=== PATIENT | male | born 1950 | race Caucasian/White ===

== ENCOUNTER 2018-01-23 06:49 | Emergency (ER) | payer MEDICARE, OTHER ==
[2018-01-23] MEDS ORDERED: NS 0.9% 1000 ML* 1,000 ML IV ONE (07:37)
[2018-01-23 08:11] LABS: Hematocrit 44 % (42-52); Hemoglobin 15.1 g/dl (14.0-18.0); Mean Corpuscular HGB Conc 34 g/dl (31-36); Mean Corpuscular Hemoglobin 32 pg (27-31); Mean Corpuscular Volume 95 fL (80-94); Mean Platelet Volume 11.9 um3 (7.4-10.4); Platelet Count 185 10^3/ul (150-450); Red Blood Count 4.66 10^6/ul (4.0-5.4); Red Cell Distribution Width 13 % (10.5-15); White Blood Count 25.6 10^3/ul (3.5-10.8)
[2018-01-23 08:34] LABS: EGFR Non-African American 70.2 (>60); INR 1.09 (0.77-1.02)
[2018-01-23 09:02] LABS: ABS Basophils 0.1 10^3/ul (0-0.2); ABS Eosinophils 0.1 10^3/ul (0-0.6); ABS Lymphocytes 2.2 10^3/ul (1.0-4.8); ABS Neutrophils 21.2 10^3/ul (1.5-7.7); ABS Nucleated RBC 0 10^3/ul; Eosinophil % 0.2 % (0-6); Lymphocyte % 8.7 % (25-47); Nucleated Red Blood Cells % 0
--- OUTSIDE RECORDS SUMMARY | 2018-01-23 09:05 | XMS REPORT ---
:1950 External Reference #:[id number] Author Organization [facility] Address [address] [place] [address] Phone [phone] Care Team Providers Name Role Phone Rakesh Kline M.D. Primary Care Physician Unavailable Payers Type Date Identification Numbers Payment Provider Subscriber Commercial Policy Number: [id number] [employer] Ppo/Pos/Epo/Nap [employer] Number: [id number] [id number] PayID: [id number] [place] [address] Problems Date Description Provider Status Onset: 11/13/2014 Type 2 diabetes mellitus Александр Pena M.D. 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 Active rtnop w/o macular edema Onset: 12/21/2015 Presence of intraocular lens Александр Pena M.D. 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 Active without macular edema, bi Onset: Coronary atherosclerosis Active Onset: Non-rheumatic mitral regurgitation Active Family History Date Family Member(s) Problem(s) Comments Father No Current Problems Mother Cataract First Sister Diabetes Social History Type Date Description Comments Marital Status Legal Status: Occupation curator natural history [employer] ETOH Use Rarely consumes alcohol Smoking Patient is a former smoker in teenage years Recreational Drug Use Denies Drug Use Daily Caffeine Does Not Consume Caffeine Allergies, Adverse Reactions, Alerts Date Description Reaction Status Severity Comments 11/13/2014 Hannah banegas active Medications Medication Date Status Form Strength Qnty SIG Indications Ordering Provider Lantus Solostar Active Solution 100Unit/M Shell, /0000 Pen-Inject L Donta Demarco Nexium Active Capsules DR 20mg Suleman, / Donta Demarco Janumet Active Tablets 50-1000mg Suleman, / Donta Demarco Glipizide XL Active Tablets ER 10mg Suleman, /0000 24HR Donta Demarco Atorvastatin Active Tablets 20mg Unknown Calcium Niacin Active Tablets 500mg Unknown /0000 Accu-Chek Josselin Active Strips Shannan, Plus / Mateo Capellan MD Atenolol Active Tablets 100mg Suleman, / Donta Demarco Onetouch Verio Active Strips Suleman, Donta Demarco Clopidogrel Active Tablets 75mg Breiman, Bisulfate Александр Demarco Onetouch Delica Active Misc 30G Suleman, Lancets Fine 30G / Donta Demarco Hydrochlorothiazide Active Tablets 25mg Shallish, / Nagiyuly Demarco Lisinopril Active Tablets 40mg Suleman, / Donta Demarco Centrum Silver Active Tablets Unknown /0000 Aspirin Active Tablets 325mg Unknown /0000 Potassium Chloride Active Tablets ER 10Meq Unknown Asuncion ER Atorvastatin Active Tablets 20mg Take One Unknown Calcium /0000 Tablet By Mouth Every Day Systane Balance 11/29 Hx Solution 0.6% 1 drop Александр Altamirano Restorative Formula both Arleo, - eyes M.D. 12/22 times a day as needed Ilevro 11/21 Hx Suspension 0.3% 1 drop Александр Altamirano /2014 left eye Arleo, - every M.D. Vigamox 11/21 Hx Solution 0.5% 3ml 1 drop Александр Altamirano /2014 left eye Arleo, - three M.D. 12/20 day , start the day before surgery Prednisolone 11/21 Hx Suspension 1% 1 drop Александр Altamirano left eye Becky, - every M.D. Amoxicillin/Clavula Hx Tablets 875-125mg Unknown leyda Potassium /0000 - 12/19 Results Description No Information Procedures Date CPT Code Description Status 12/22/2016 99040 Scanning Computerized Opthalmic Diagnostic Posterior Completed Seg Retina 12/22/2016 35861 Determination Of Refractive State Completed 12/22/2016 76835 Est Patient Comprehensive Exam Completed 12/21/2015 64892 Scanning Computerized Opthalmic Diagnostic Posterior Completed Seg Retina 12/21/2015 35478 Determination Of Refractive State Completed 12/21/2015 87888 Est Patient Comprehensive Exam Completed 12/06/2014 95126 Extracapsular Cataract Extraction W/Intraocular Lens Completed 11/29/2014 26986 Extracapsular Cataract Extraction W/Intraocular Lens Completed 11/21/2014 29174 Ophthalmic Biometry Completed 11/21/2014 37516 Ophthalmic Biometry Completed 11/21/2014 86273 Scanning Computerized Opthalmic Diagnostic Posterior Completed Seg Retina 11/13/2014 19208 Scanning Computerized Opthalmic Diagnostic Posterior Completed Seg Retina 11/13/2014 39694 New Patient Comprehensive Exam Completed Encounters Type Date Location Provider CPT E/M Dx Office Visit 11/21/2014 8:30a Александр Pena MD, Александр Pena, [id number] 250.50 pc M.Pati 366.14 362.01 Plan of Care 12/24/2017 - Александр Pena M.D.E11.3293 Type 2 diab with mild nonp rtnop without macular edema, biComments:Smoking can increase the risk of developing or worsening any eye related disease, as well as affect your overall health. If you are a smoker, we strongly recommend that you quit.If you are not a smoker , we strongly recommend that you do not start. I can detect diabetic changes in your eyes. Proper control of your diabetes is important for the health of your eyes. It is important that you keep all of your follow up appointments. Dr. Pena has sent a report to your primary care doctor, letting them know the current status of your retina.Follow up:1 Year Follow Up Diagnostic Refraction OCT MAC You can expect to have your eyes dilated at your next visit. If Dr. Pena orders any additional testing, it may require extra time. We recommend that youbring sunglasses, as dilation drops often make you light sensitive until they wear off. We always recommend you bring someone to drive you home if you are uncomfortable driving with your eyes dilated. If you have any questions before your next visit, feel free to call our office at .Z96.1 Presence of intraocular lensComments:The artificial lens implants in both eyes appear to be stable at this time.
[2018-01-23] MEDS ORDERED: Piperacillin/Tazobac ADVAN(*) 3.375 GM in NS 0.9% 100 ML* 100 ML IVPB ONE (09:43)
[2018-01-23] MEDS ORDERED: Iodixanol* (CONTRAST) 320 MG/ML 100 ML SDV IV ONE (09:53)
--- NOTE | 2018-01-23 10:12 | RAD ---
CLINICAL HISTORY: Diverticulitis, GI bleed COMPARISON: March 25, 2016 TECHNIQUE: Multiple contiguous axial CT scans were obtained of the abdomen and pelvis after the administration of intravenous contrast. Coronal and sagittal multiplanar reformations are submitted for review. Oral contrast was administered. Delayed images were obtained through the abdomen. FINDINGS: LUNG BASES: The lung bases are clear. LIVER: There is a low-attenuation lesion of the left lobe of liver in segment 4 posteriorly measuring 1.7 cm in size. This is not clearly seen on the previous examination. BILE DUCTS: There is no intrahepatic or extrahepatic biliary dilatation. GALLBLADDER: The gallbladder is normal, without pericholecystic inflammatory change. PANCREAS: The pancreas is normal, without mass or ductal dilatation. SPLEEN: Normal in size and appearance. UPPER GI TRACT: Evaluation of the gastrointestinal tract is limited by incomplete gastric distention. The upper GI tract is unremarkable. SMALL BOWEL AND MESENTERY: The small bowel is normal in contour, course, and caliber. There is no obstruction or dilatation. COLON: There is mucosal thickening of the descending colon. ADRENALS: Normal bilaterally. KIDNEYS: Again noted is an exophytic lesion of the midpole of the left kidney. This is stable in size and appearance when compared to the previous examination. Renal cysts are noted BLADDER: The bladder is smooth in contour. PELVIC ORGANS: The prostate gland is normal. The seminal vesicles are symmetric. AORTA: The aorta is normal. The celiac trunk, superior mesenteric artery, and inferior mesenteric arteries appear patent. IVC: There is a retroaortic left renal vein. LYMPH NODES: There is no lymphadenopathy by size criteria. ABDOMINAL WALL: There is no evidence for abdominal wall hernia. BONES AND SOFT TISSUES: There are mild diffuse degenerative changes. OTHER: None IMPRESSION: 1. THERE IS MUCOSAL THICKENING OF THE DESCENDING COLON, SUGGESTIVE OF COLITIS. THIS IS LIKELY INFECTIOUS OR INFLAMMATORY. ISCHEMIC COLITIS IS ALSO WITHIN THE DIFFERENTIAL, THOUGH THIS IS CONSIDERED LESS LIKELY THIS DOES NOT CORRESPOND DIRECTLY TO A VASCULAR TERRITORY AND THE SPLANCHNIC VESSELS APPEAR WIDELY PATENT. 2. THERE IS A LOW-ATTENUATION LESION OF THE LIVER THAT IS INCOMPLETELY CHARACTERIZED ON THE CURRENT EXAMINATION IS NOT WELL SEEN ON PREVIOUS EXAMINATIONS. RECOMMEND CONSIDERATION OF FURTHER EVALUATION WITH MULTIPHASE CONTRAST ENHANCED LIVER PROTOCOL CT OR CONTRAST-ENHANCED MRI OF THE ABDOMEN AND THE NONACUTE SETTING. 3. AGAIN NOTED IS A SOLID EXOPHYTIC LESION OF THE LEFT KIDNEY
[2018-01-23 10:54] VITALS: BP 143/88
--- NOTE | 2018-01-23 11:45 | ED ---
Pio Graham Stephanie, scribed for Sukhwinder Boyd on 01/23/18 at 0742 . GI/ HPI - HPI Summary HPI Summary: The pt is a 67 y/o M presenting to the ED with c/o rectal bleeding that began on 01/22/18. Symptoms include constipation and abd pain since 01/21/18.The pt states he passed gas 4 times yesterday and saw fresh blood from the rectum. He denies fever and vomiting. - History of Current Complaint Chief Complaint: EDGIBleed Time Seen by Provider: 01/23/18 07:10 Stated Complaint: RECTAL BLEEDING Hx Obtained From: Patient Onset/Duration: Started Days Ago - 1, Still Present Timing: Intermittent Current Severity: Moderate Pain Intensity: 6 Location of Pain: Diffuse Associated Signs and Symptoms: Positive: Constipation, Abdominal Pain, Other: - blood per rectum. Negative: Vomiting, Fever Aggravating Factor(s): Nothing Alleviating Factor(s): Nothing - Allergy/Home Medications Allergies/Adverse Reactions: Allergies Allergy/AdvReac Type Severity Reaction Status Date / Time zolpidem [From Ambien] Allergy Hallucinati Verified 01/23/18 07:08 ons Home Medications: Home Medications Atenolol TAB* [Tenormin TAB* 50 MG] 100 mg PO DAILY 01/23/18 [History Confirmed 01/23/18] Esomeprazole(NF) [NEXium(NF)] 20 mg PO DAILY 01/23/18 [History Confirmed ] Insulin GLARGINE(*) [Lantus(*)] 20 units SUBCUT QPM 01/23/18 [History Confirmed 01/23/18] Insulin GLARGINE(*) [Lantus(*)] 30 units SUBCUT QAM 01/23/18 [History Confirmed 01/23/18] Multivitamins/Minerals TAB* [Theragran/minerals TAB*] 1 tab PO DAILY 01/23/18 [ History Confirmed 01/23/18] Niacinamide [Niacin] 1,000 mg PO QAM 01/23/18 [History Confirmed 01/23/18] Niacinamide [Niacin] 500 mg PO QPM 01/23/18 [History Confirmed 01/23/18] Potassium Chlor TAB* [Klor Con ER TAB*] 10 meq PO BID 01/23/18 [History Confirmed 01/23/18] Sitagliptin Phos/Metformin HCl [Janumet 50-1000 mg] 1 tab PO BID 01/23/18 [ History Confirmed 01/23/18] glipiZIDE TAB* [Glucotrol TAB*] 20 mg PO DAILY 01/23/18 [History Confirmed 01/23] PMH/Surg Hx/FS Hx/Imm Hx Endocrine/Hematology History: Reports: Hx Diabetes Cardiovascular History: Reports: Hx Coronary Artery Disease, Hx Hypercholesterolemia, Hx Hypertension, Other Cardiovascular Problems/Disorders - surgery for pericardial cyst removal Denies: Hx Angina, Hx Myocardial Infarction, Hx Valvular Heart Disease Respiratory History: Reports: Hx Chronic Obstructive Pulmonary Disease (COPD) Denies: Hx Asthma, Other Respiratory Problems/Disorders GI History: Reports: Hx Hiatal Hernia Denies: Other GI Disorders History: Reports: Hx Renal Disease - kidney mass per pt, never biopsied Musculoskeletal History: Denies: Other Musculoskeletal History Sensory History: Reports: Hx Cataracts - STEVE, Hx Contacts or Glasses - GLASSES Denies: Hx Hearing Aid Opthamlomology History: Reports: Hx Cataracts - STEVE, Hx Contacts or Glasses - GLASSES - Surgical History Surgery Procedure, Year, and Place: NECK FROM ACCIDENT, 1992, [place], PERICARDIAL CYST, 1992, [place],HEART CATH X2, 2004, [facility] [place],HYDROCELE LEFT, [facility] [place] , 2006,2014 cataract bilat Hx Anesthesia Reactions: No Infectious Disease History: No Infectious Disease History: Denies: Traveled Outside the [place] in Last 30 Days - Family History Known Family History: Positive: Cardiac Disease Family History: CAD - Social History Occupation: Employed Full-time Lives: Alone Alcohol Use: Rare Alcohol Amount: 12 IN SUMMER Hx Substance Use: No Substance Use Type: Reports: None Hx Tobacco Use: No Smoking Status (MU): Never Smoked Tobacco Type: Cigarettes Have You Smoked in the Last Year: No Review of Systems Negative: Fever Gastrointestinal: Other - constipation, blood per rectum Positive: Abdominal Pain. Negative: Vomiting All Other Systems Reviewed And Are Negative: Yes Physical Exam - Summary Physical Exam Summary: Appearance: Well appearing, no pain distress Skin: warm, dry, reflects adequate perfusion Head/face: normal Eyes: EOMI, KATYA ENT: normal Neck: supple, non-tender Respiratory: CTA, breath sounds present Cardiovascular: RRR, pulses symmetrical Abdomen: tenderness in LLQ, soft Bowel: present Musculoskeletal: normal, strength/ROM intact Neuro: normal, sensory motor intact, A&Ox3 Rectal: streaks of blood present Triage Information Reviewed: Yes Vital Signs On Initial Exam: Initial Vitals Temp Pulse Resp BP Pulse Ox 97.6 F 91 16 127/82 95 01/23/18 06:50 01/23/18 06:50 01/23/18 06:50 01/23/18 06:50 01/23/18 06:50 Vital Signs Reviewed: Yes Diagnostics - Vital Signs Vital Signs Temp Pulse Resp BP Pulse Ox 01/23/18 07:11 93 119/81 95 01/23/18 07:02 89 93 01/23/18 06:50 97.6 F 91 16 127/82 95 - Laboratory Lab Results: Lab Results 01/23/18 01/23/18 01/23/18 Range/Units 07:51 07:51 07:51 WBC 25.6 H (3.5-10.8) 10^3/ul RBC 4.66 (4.0-5.4) 10^6/ul Hgb 15.1 (14.0-18.0) g/dl Hct 44 (42-52) % MCV 95 H (80-94) fL MCH 32 H (27-31) pg MCHC 34 (31-36) g/dl RDW 13 (10.5-15) % Plt Count 185 (150-450) 10^3/ul MPV 11.9 H (7.4-10.4) um3 Neut % (Auto) 82.9 (38-83) % Lymph % (Auto) 8.7 L (25-47) % Riley % (Auto) 7.9 H (0-7) % Eos % (Auto) 0.2 (0-6) % Baso % (Auto) 0.3 (0-2) % Absolute Neuts (auto) 21.2 H (1.5-7.7) 10^3/ul Absolute Lymphs (auto) 2.2 (1.0-4.8) 10^3/ul Absolute Monos (auto) 2.0 H (0-0.8) 10^3/ul Absolute Eos (auto) 0.1 (0-0.6) 10^3/ul Absolute Basos (auto) 0.1 (0-0.2) 10^3/ul Absolute Nucleated RBC 0 10^3/ul Nucleated RBC % 0 INR (Anticoag Therapy) (0.77-1.02) APTT (26.0-36.3) seconds Sodium 136 L (139-145) mmol/L Potassium 3.5 (3.5-5.0) mmol/L Chloride 100 L (101-111) mmol/L Carbon Dioxide 28 (22-32) mmol/L Anion Gap 8 (2-11) mmol/L BUN 27 H (6-24) mg/dL Creatinine 1.05 (0.67-1.17) mg/dL Est GFR ( Amer) 90.3 (>60) Est GFR (Non-Af Amer) 70.2 (>60) BUN/Creatinine Ratio 25.7 H (8-20) Glucose 217 H (70-100) mg/dL Lactic Acid 1.7 (0.5-2.0) mmol/L Calcium 9.3 (8.6-10.3) mg/dL Total Bilirubin 0.90 (0.2-1.0) mg/dL AST 13 (13-39) U/L ALT 24 (7-52) U/L Alkaline Phosphatase 80 (34-104) U/L C-Reactive Protein 93.19 H (< 5.00) mg/L Total Protein 6.8 (6.4-8.9) g/dL Albumin 3.9 (3.2-5.2) g/dL Globulin 2.9 (2-4) g/dL Albumin/Globulin Ratio 1.3 (1-3) Lipase < 10 L (11.0-82.0) U/L Blood Type Antibody Screen 01/23/18 01/23/18 Range/Units 07:51 07:51 WBC (3.5-10.8) 10^3/ul RBC (4.0-5.4) 10^6/ul Hgb (14.0-18.0) g/dl Hct (42-52) % MCV (80-94) fL MCH (27-31) pg MCHC (31-36) g/dl RDW (10.5-15) % Plt Count (150-450) 10^3/ul MPV (7.4-10.4) um3 Neut % (Auto) (38-83) % Lymph % (Auto) (25-47) % Riley % (Auto) (0-7) % Eos % (Auto) (0-6) % Baso % (Auto) (0-2) % Absolute Neuts (auto) (1.5-7.7) 10^3/ul Absolute Lymphs (auto) (1.0-4.8) 10^3/ul Absolute Monos (auto) (0-0.8) 10^3/ul Absolute Eos (auto) (0-0.6) 10^3/ul Absolute Basos (auto) (0-0.2) 10^3/ul Absolute Nucleated RBC 10^3/ul Nucleated RBC % INR (Anticoag Therapy) 1.09 H (0.77-1.02) APTT 28.0 (26.0-36.3) seconds Sodium (139-145) mmol/L Potassium (3.5-5.0) mmol/L Chloride (101-111) mmol/L Carbon Dioxide (22-32) mmol/L Anion Gap (2-11) mmol/L BUN (6-24) mg/dL Creatinine (0.67-1.17) mg/dL Est GFR ( Amer) (>60) Est GFR (Non-Af Amer) (>60) BUN/Creatinine Ratio (8-20) Glucose (70-100) mg/dL Lactic Acid (0.5-2.0) mmol/L Calcium (8.6-10.3) mg/dL Total Bilirubin (0.2-1.0) mg/dL AST (13-39) U/L ALT (7-52) U/L Alkaline Phosphatase (34-104) U/L C-Reactive Protein (< 5.00) mg/L Total Protein (6.4-8.9) g/dL Albumin (3.2-5.2) g/dL Globulin (2-4) g/dL Albumin/Globulin Ratio (1-3) Lipase (11.0-82.0) U/L Blood Type A Positive Antibody Screen Negative Result Diagrams: 01/23/18 07:51 01/23/18 07:51 Lab Statement: Any lab studies that have been ordered have been reviewed, and results considered in the medical decision making process. - CT Abdomen/Pelvis CT Interpretation: Positive (See Comments) CT Interpretation Completed By: Radiologist - 1. THERE IS MUCOSAL THICKENING OF THE DESCENDING COLON, SUGGESTIVE OF COLITIS. THIS IS LIKELY INFECTIOUS OR INFLAMMATORY. ISCHEMIC COLITIS IS ALSO WITHIN THE DIFFERENTIAL, THOUGH THIS IS CONSIDERED LESS LIKELY THIS DOES NOT CORRESPOND DIRECTLY TO A VASCULAR TERRITORY AND THE SPLANCHNIC VESSELS APPEAR WIDELY PATENT. 2. THERE IS A LOW- ATTENUATION LESION OF THE LIVER THAT IS INCOMPLETELY CHARACTERIZED ON THE CURRENT EXAMINATION IS NOT WELL SEEN ON PREVIOUS EXAMINATIONS. RECOMMEND CONSIDERATION OF FURTHER EVALUATION WITH MULTIPHASE CONTRAST ENHANCED LIVER PROTOCOL CT OR CONTRAST-ENHANCED MRI OF THE ABDOMEN AND THE NONACUTE SETTING. 3. AGAIN NOTED IS A SOLID EXOPHYTIC LESION OF THE LEFT KIDNEY ED physician has reviewed this report. Re-Evaluation - Re-Evaluation First Eval Re-Evaluation Time: 10:22 Change: Unchanged - The pt is advised of the hospitalist's advice to trasnfer to [facility]. The pt declines ambulance transfer AMA and states he will drive to [facility] via private vehicle. GIGU Course/Dx - Course Course Of Treatment: The pt is a 67 y/o M presenting to the ED with c/o rectal bleeding that began on 01/22/18. Symptoms include constipation and abd pain since 01/21/18. At 10:16, ED physician spoke to Dr. Hogan who suggested the pt be transfered. The pt declines ambulance transfer AMA and states he will drive himself to [facility] via [facility]. The pt is dx with GI bleed, abd pain and colitis. - Diagnoses Differential Diagnoses - Male: Diverticulitis, Dehydration - gi bleeding Provider Diagnoses: Colitis, GI bleed, Abdominal pain - Physician Notifications Discussed Care Of Patient With: Kev Hogan - Advised to transfer the pt. Time Discussed With Above Provider: 10:16 Discharge - Sign-Out/Discharge Documenting (check all that apply): Discharge/Admit/Transfer - Transfer - Discharge Plan Condition: Stable Disposition: AGAINST MEDICAL ADVICE Patient Education Materials: Gastrointestinal Bleeding (ED), Colitis (ED) Referrals: Rakesh Kline MD [Primary Care Provider] - Additional Instructions: Return to the ED for new or worsening symptoms. - Billing Disposition and Condition Condition: STABLE Disposition: AMA The documentation as recorded by the Pio cha Stephanie accurately reflects the service I personally performed and the decisions made by Deb cedeño Emmanuel.
== END 2018-01-23 10:53 | disposition left against medical advice (07) ==
LOC: ED 06:49
DX: K52.9 Noninfective gastroenteritis and colitis, unspecified (principal); R10.9 Unspecified abdominal pain; K92.2 Gastrointestinal hemorrhage, unspecified; K59.00 Constipation, unspecified; E11.9 Type 2 diabetes mellitus without complications; I25.10 Atherosclerotic heart disease of native coronary artery without angina pectoris
CPT/HCPCS: 36415; 74177; 80053; 82270; 83605; 83690; 85025; 85610; 85730; 86140; 86850; 86900; 86901; 96365; 99283; J2543; Q9967

== ENCOUNTER 2019-10-29 10:16 | Emergency (ER) | payer MEDICARE, OTHER ==
--- OUTSIDE RECORDS SUMMARY | 2019-10-29 10:23 | XMS REPORT | Continuity of Care Document ---
:1950 External Reference #:[id number] Author Name Renetta Ball O.D. Address [address] [place] [address] Care Team Providers Name Role Phone Bev Horan M.D. - Care Team Information Social Media Director [phone] Cardiovascular Disease Winston Warner M.D. - Urology Care Team Information Social Media Director [phone] Rakesh Kline M.D. - Family Medicine Care Team Information Social Media Director [phone] Problems Active Problems Provider Date Type 2 diabetes mellitus Александр Pena M.D. Onset: 11/13/2014 Essential hypertension Onset: Hypercholesterolemia Onset: Ischemic stroke Onset: Type 2 diabetes mellitus with mild Александр Pena M.D. Onset: 12/21/2015 nonproliferative diabetic retinopathy without macular edema Presence of intraocular lens Александр Pena M.D. Onset: 12/21/2015 Type 2 diabetes mellitus with mild Александр Pena M.D. Onset: 12/22/2016 nonproliferative diabetic retinopathy without macular edema, bilateral Coronary atherosclerosis Onset: Non-rheumatic mitral regurgitation Onset: Conjunctivitis Renetta Ball O.D. Onset: 10/10/2019 Superficial punctate keratitis Renetta Ball O.D. Onset: 10/10/2019 Social History Type Date Description Comments Sex Unknown ETOH Use Rarely consumes alcohol Tobacco Use Start: Unknown End: Patient is a former in teenage years Unknown smoker Recreational Drug Use Denies Drug Use Smoking Status Reviewed: 10/10/19 Patient is a former in teenage years smoker Allergies, Adverse Reactions, Alerts Active Allergies Reaction Severity Comments Date Hannah banegas 11/13/2014 Medications Active Medications SIG Qnty Indications Ordering Date Provider Erythromycin apply thin 1Tube H16.141 Renetta Altamirano 10/10/2019 5mg/GM Ointment strip to right Bobbi Ball eye tid for 2 days, then at bedtime only Atorvastatin Calcium Take One Unknown 20mg Tablets Tablet By Mouth Every Day Potassium Chloride Asuncion ER Unknown 10Meq Tablets ER Aspirin Unknown 325mg Tablets Centrum Silver Unknown Tablets Lisinopril Donta Shell M.D. 40mg Tablets Hydrochlorothiazide Shallish, Nagi 25mg Tablets MDonta Wright M.D. Fine 30G 30G Misc Clopidogrel Bisulfate Александр Anthony 75mg Tablets Nilam Christianson VerDonta Stacy M.D. Strips Atenolol twice daily Donta Shell M.D. 100mg Tablets Accu-Chek Josselin Plus Mateo Campbell Strips MD Timi Niacin Unknown 500mg Tablets Atorvastatin Calcium Unknown 20mg Tablets Glipizide XL Donta Shell M.D. 10mg Tablets ER 24HR JanumeDonta Valverde M.D. 50-1000mg Tablets Nexium Donta Shell M.D. 20mg Capsules Donta Estevez M.D. 100Unit/ML Solution Pen-Inject Immunizations Description No Information Available Vital Signs Description No Information Available Results Description No Information Available Procedures Description No Information Available Medical Devices Description No Information Available Encounters Description No Information Available Assessments Date Code Description Provider 10/10/2019 H16.141 Punctate keratitis, right eye Renetta Blal O.D. 10/10/2019 H10.89 Other conjunctivitis Renetta Ball O.D. Plan of Treatment Future Appointment(s):12/26/2019 8:30 am - Александр Pena M.D. at [facility]лександр Pena [facility], pc10/10/2019 - Renetta Ball O.D.H16.141 Punctate keratitis, right eyeNew Medication:Erythromycin 5 mg/GM - apply thin strip to right eye tid for 2 days, then at bedtime onlyComments:START ERYTHROMYCIN OINTMENT 3XDAY FOR 2 DAYS, THEN AT BEDTIME ONLY RIGHT EYEFollow up:THURSDAY RECHECK At your next visit, we are not planning to dilate your eyes. However, if you have any changes in your vision or new symptoms, there are certain situations that require us to dilate youreyes. If Dr. Ball requests any additional testing, that may require extra time. If you have any questions before your next appointment, please call our office at .H10.89 Other conjunctivitis Functional Status Description No Information Available Mental Status Description No Information Available Referrals Description No Information Available
--- OUTSIDE RECORDS SUMMARY | 2019-10-29 10:23 | XMS REPORT | Continuity of Care Document ---
:1950 External Reference #:[id number] Author Name Renetta Ball O.D. Address [address] [place] [address] Care Team Providers Name Role Phone Bev Horan M.D. - Care Team Information Survey Research Center Director [phone] Cardiovascular Disease Winston Warner M.D. - Urology Care Team Information Survey Research Center Director [phone] Rakesh Kline M.D. - Family Medicine Care Team Information [employer] [facility] Director Problems Active Problems Provider Date Type 2 [...] Coronary atherosclerosis Onset: Non-rheumatic mitral regurgitation Onset: Superficial punctate keratitis Renetta Ball O.D. Onset: 10/10/2019 Conjunctivitis Renetta Ball O.D. Onset: 10/10/2019 Tear film insufficiency Renetta Ball O.D. Onset: 10/14/2019 Chalazion Renetta Ball O.D. Onset: 10/14/2019 Social History Type Date Description Comments Sex Unknown ETOH Use Rarely consumes alcohol Tobacco Use Start: Unknown End: Patient is a former in teenage years Unknown smoker Recreational Drug Use Denies Drug Use Smoking Status Reviewed: 10/14/19 Patient is a former in teenage years smoker Allergies, Adverse Reactions, Alerts Active Allergies Reaction Severity Comments Date Hannah banegas 11/13/2014 Medications Active Medications SIG Qnty Indications Ordering Date Provider Erythromycin apply thin 1Tube H16.141 Renetta Adarsh 10/10/2019 5mg/GM Ointment strip to right [place], O.D. eye tid for 2 days, then at bedtime only Atorvastatin Calcium Take One Unknown 20mg Tablets Tablet By Mouth Every Day Potassium Chloride [place] ER Unknown 10Meq Tablets ER Aspirin Unknown 325mg Tablets Centrum Silver Unknown Tablets Lisinopril Donta Shell M.D. 40mg Tablets Hydrochlorothiazide Nagi Pelletier 25mg Tablets Nilam Christianson Delica LancDonta Camilo M.D. Fine 30G 30G Misc Clopidogrel Bisulfate Александр Anthony 75mg Tablets Donta Wang M.D. Strips Atenolol twice daily Donta Shell M.D. 100mg Tablets Accu-Chek Josselin Plus Mateo Campbell Nancy Capellan MD Niacin Unknown 500mg Tablets Atorvastatin Calcium Unknown 20mg Tablets Glipizide XL Donta Shell M.D. 10mg Tablets ER 24HR JanumeDonta Valverde M.D. 50-1000mg Tablets Nexium Donta Shell M.D. 20mg Capsules Donta Estevez M.D. 100Unit/ML Solution Pen-Inject Immunizations Description No Information Available Vital Signs Description No Information Available Results Description No Information Available Procedures Date Code Description Status 10/10/2019 96425 Est Patient Intermediate Exam Completed Medical Devices Description No Information Available Encounters Description No Information Available Assessments Date Code Description Provider 10/14/2019 H16.141 Punctate keratitis, right eye Renetta Ball O.D. 10/14/2019 H00.11 Chalazion right upper eyelid Renetta Ball O.D. 10/14/2019 H04.123 Dry eye syndrome of bilateral lacrimal Renetta Ball O.D. 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 10/10/2019 H16.141 Punctate keratitis, right eye Renetta Ball O.D. 10/10/2019 H10.89 Other conjunctivitis Renetta Ball O.D. Plan of Treatment Future Appointment(s):12/26/2019 8:30 am - Александр Pena M.D. at [facility]лександр Pena MD, 10/14/2019 - Renetta Ball O.D.H16.141 Punctate keratitis, right eyeComments:continue to use Erythromycin ointment at bedtime for 2 more weeksUse a hot compress for 5-10 minutesat least once a day in the [id number] Chalazion right upper [id number] Dry eye syndrome of bilateral lacrimal [id number] Type 2 diabetes mellitus with mild nonproliferative diabeticFollow up:12/26/2019 cee as [id number] Presence of intraocular lens Functional Status Description No Information Available Mental Status Description No Information Available Referrals Description No Information Available
[2019-10-29 11:06] VITALS: BP 124/68
--- NOTE | 2019-10-29 11:43 | UC ---
Truncal Trauma HPI - HPI Summary HPI Summary: Per historian research assistant: "On Thursday (10/26) pt slipped on ice while carrying metal spotlight. C/o pain and bruising on RIGHT side of ABD where he fell directly on spotlight. States pain w/ movement and to touch. Took tylenol 325mg today 399. On clopidegrel and aspirin daily. " -he just drove here from [place] (150 miles). he feels fine o/w. fall caused by slip on ice. not lightehaded/dizzy no CP. -he feels fine. no cp/sob/lightheaded or dizzy. -dtr is Daniel (corporate receptionist here). no abdominal pain + carotid disease - History Of Current Complaint Chief Complaint: UCGeneralIllness Stated Complaint: RT SIDE INJURY Time Seen by Provider: 10/29/19 11:17 Pain Intensity: 0 - Allergies/Home Medications Allergies/Adverse Reactions: Allergies Allergy/AdvReac Type Severity Reaction Status Date / Time zolpidem [From Ambien] Allergy Hallucinati Verified 10/29/19 10:58 ons Home Medications: Home Medications Aspirin TAB* [Aspirin 325 MG TAB*] 325 mg PO DAILY 11/29/13 [History Confirmed 10/29/19] Atorvastatin* [Lipitor 20 MG*] 20 mg PO DAILY 11/29/13 [History Confirmed ] Hydrochlorothiazide TAB* [Hydrodiuril TAB*] 25 mg PO DAILY 11/29/13 [History Confirmed 10/29/19] Lisinopril TAB* [Prinivil TAB 10 MG*] 40 mg PO DAILY 11/29/13 [History Confirmed 10/29/19] Atenolol TAB* [Tenormin TAB* 50 MG] 150 mg PO DAILY 01/23/18 [History Confirmed 10/29/19] Insulin GLARGINE(*) [Lantus 100 units/ml 10 ml VIAL (*)] 40 units SUBCUT BID [History Confirmed 10/29/19] Multivitamins/Minerals TAB* [Theragran/minerals TAB*] 1 tab PO DAILY 01/23/18 [ History Confirmed 10/29/19] glipiZIDE TAB* [Glucotrol TAB*] 10 mg PO DAILY 01/23/18 [History Confirmed ] Potassium Chloride [Klor-Con 10] 10 meq PO DAILY 04/23/18 [History Confirmed ] Clopidogrel TAB* [Plavix TAB*] 1 tab DAILY 10/29/19 [History Confirmed 10/29/19] Niacin ER CAP* [Niaspan ER CAP*] 1 - 2 tab BID 10/29/19 [History Confirmed ] Pantoprazole TAB * [Protonix TAB*] 1 tab DAILY 10/29/19 [History Confirmed ] Pioglitazone TAB* [Actos TAB*] 30 mg PO DAILY 10/29/19 [History Confirmed ] Primidone 50 mg TAB (*) [Mysoline 250 mg TAB (*)] 1 - 2 tab DAILY PRN 10/29/19 [ History Confirmed 10/29/19] Sitagliptin Phos/Metformin HCl [Janumet 50-1,000 mg Tablet] 1 tab BID 10/29/19 [ History Confirmed 10/29/19] amLODIPine TAB* [Norvasc 5 mg TAB*] 10 mg PO DAILY 10/29/19 [History Confirmed 10/29/19] PMH/Surg Hx/FS Hx/Imm Hx Endocrine History: Diabetes, Dyslipidemia Cardiovascular History: Hypertension - Surgical History Surgical History: Yes Surgery Procedure, Year, and Place: NECK FROM ACCIDENT, 1992, [place], PERICARDIAL CYST, 1992, [place],HEART CATH [place]2, [place] [facility] [facility] [place] cataract bilat,left shoulder - Family History Known Family History: Positive: Cardiac Disease Family History: CAD - Social History Alcohol Use: None Alcohol Amount: 12 IN [place] Substance Use Type: None Smoking Status (MU): Former Smoker Type: Cigarettes Have You Smoked in the Last Year: No When Did the Patient Quit Smoking/Using Tobacco: 1970 Review of Systems All Other Systems Reviewed And Are Negative: Yes Constitutional: Positive: Negative. Negative: Fever, Chills, Fatigue Skin: Positive: Bruising Eyes: Positive: Negative ENT: Positive: Negative Respiratory: Positive: Negative Cardiovascular: Positive: Negative. Negative: Palpitations, Chest Pain Gastrointestinal: Positive: Negative Genitourinary: Positive: Negative. Negative: Dysuria Motor: Positive: Negative Neurovascular: Positive: Negative Musculoskeletal: Positive: Negative Neurological/Mental Status: Positive: Negative Psychological: Positive: Negative Physical Exam Triage Information Reviewed: Yes Appearance: Well-Appearing, No Pain Distress, Well-Nourished - very pleasant Vital Signs: Initial Vital Signs Temp 97.9 F 10/29/19 10:58 Pulse 82 10/29/19 10:58 Resp 16 10/29/19 10:58 BP 124/68 10/29/19 10:58 Pulse Ox 98 10/29/19 10:58 Eye Exam: Normal ENT Exam: Normal ENT: Positive: Pharynx normal Neck exam: Normal Neck: Positive: Supple, Nontender, No Lymphadenopathy, Other: - rt neck scar from prev chainsaw trauma. Respiratory Exam: Normal Respiratory: Positive: Lungs clear, Normal breath sounds, No respiratory distress, No accessory muscle use. Negative: Crackles, Rhonchi, Stridor, Wheezing Cardiovascular Exam: Normal Cardiovascular: Positive: RRR, No Murmur Abdomen Description: Positive: Nontender, Other: - large 8cm x 12 cm darke bruisi ine RUQ. + tender. exam is limited due to body habitus, obese abdomen.. Negative: CVA Tenderness (R), CVA Tenderness (L), Guarding Bowel Sounds: Positive: Present Musculoskeletal Exam: Normal Neurological Exam: Normal Psychological Exam: Normal Skin: Positive: Other - see above Truncal Trauma Course/Dx - Course Course Of Treatment: Unable to fully assess internal bleeding w/o CT w/ contrast. concern is he takes plavix and high dose ASA 325mgs. he is very agreeable to go to ER. he does not wantto take ambulance. he reasons that he drove to [place] and back already since the fall. - Differential Dx/Diagnosis Differential Diagnosis/HQI/PQRI: Abdominal Wall Contusion, Hepatic Trauma Provider Diagnosis: Contusion Discharge ED - Sign-Out/Discharge Documenting (check all that apply): Patient Departure All imaging exams completed and their final reports reviewed: No Studies - Discharge Plan Condition: Stable Disposition: TRANS HIGHER LVL OF CARE FAC Referrals: Rakesh Kline MD [Primary Care Provider] - Additional Instructions: Discussed recommendation for CT w/ contrast that is NA at our facility. He is on ASA 325mgs ad plavix. He is very agreeable to go to [facility] [place] (per his preferecne). he does not want to go by ambulance. - Billing Disposition and Condition Condition: STABLE Disposition: Trans Higher Lvl of Care Fac
== END 2019-10-29 11:51 | disposition short-term general hospital (02) ==
LOC: UCCORT 10:16
DX: S30.1XXA Contusion of abdominal wall, initial encounter (principal); E11.9 Type 2 diabetes mellitus without complications; E78.5 Hyperlipidemia, unspecified; I10 Essential (primary) hypertension; Z88.8 Allergy status to other drugs, medicaments and biological substances; Z79.82 Long term (current) use of aspirin; Z79.84 Long term (current) use of oral hypoglycemic drugs; Z79.4 Long term (current) use of insulin; Z79.899 Other long term (current) drug therapy; Z87.891 Personal history of nicotine dependence; W00.9XXA Unspecified fall due to ice and snow, initial encounter; Y92.9 Unspecified place or not applicable
CPT/HCPCS: 99212; G0463

== ENCOUNTER 2019-10-29 12:34 | Emergency (ER) | payer MEDICARE, OTHER ==
--- NOTE | 2019-10-29 13:01 | ED ---
Adult Trauma - HPI Summary HPI Summary: This patient is a 69 y/o [facility]/o bruising to right upper abdomen s/p fall on 10/25/19. Patient reports he slipped and fell on halogen spotlight and sustained a bruise to right upper abdomen. He denies any head strike or LOC. He notes his bruising has worsened since his fall. Patient states he has pain to right upper abdomen only when he coughs or with movement. Denies fever, nausea, vomiting, diarrhea, constipation, chest pain, SOB. Patient is anticoagulated on Plavix. He also takes aspirin. PMHx includes dyslipidemia, HTN, DM, GERD. Home Medications Medication Instructions Recorded Confirmed Type Aspirin TAB* [Aspirin 325 MG TAB*] 325 mg PO DAILY 11/29/13 10/29/19 History Atorvastatin* [Lipitor 20 MG*] 20 mg PO DAILY 11/29/13 10/29/19 History Hydrochlorothiazide TAB* 25 mg PO DAILY 11/29/13 10/29/19 History [Hydrodiuril TAB*] Lisinopril TAB* [Prinivil TAB 10 40 mg PO DAILY 11/29/13 10/29/19 History MG*] Atenolol TAB* [Tenormin TAB* 50 MG] 150 mg PO DAILY 01/23/18 10/29/19 History Insulin GLARGINE(*) [Lantus 100 40 units SUBCUT BID 01/23/18 10/29/19 History units/ml 10 ml VIAL (*)] Multivitamins/Minerals TAB* 1 tab PO DAILY 01/23/18 10/29/19 History [Theragran/minerals TAB*] glipiZIDE TAB* [Glucotrol TAB*] 10 mg PO DAILY 01/23/18 10/29/19 History Potassium Chloride [Klor-Con 10] 10 meq PO DAILY 04/23/18 10/29/19 History Clopidogrel TAB* [Plavix TAB*] 1 tab DAILY 10/29/19 10/29/19 History Niacin ER CAP* [Niaspan ER CAP*] 1 - 2 tab BID 10/29/19 10/29/19 History Pantoprazole TAB * [Protonix TAB*] 1 tab DAILY 10/29/19 10/29/19 History Pioglitazone TAB* [Actos TAB*] 30 mg PO DAILY 10/29/19 10/29/19 History Primidone 50 mg TAB (*) [Mysoline 1 - 2 tab DAILY PRN 10/29/19 10/29/19 History 250 mg TAB (*)] Sitagliptin Phos/Metformin HCl 1 tab BID 10/29/19 10/29/19 History [Janumet 50-1,000 mg Tablet] amLODIPine TAB* [Norvasc 5 mg TAB*] 10 mg PO DAILY 10/29/19 10/29/19 History - History of Current Complaint Chief Complaint: EDAbdPain Stated Complaint: FALL INJ/ABD BRUISE PER PT Time Seen by Provider: 10/29/19 12:57 Hx Obtained From: Patient Mechanism of Injury: Fall Ambulatory at the Scene: Yes Loss of Consciousness: no loss of consciousness Restraints: None Onset/Duration: Started Days Ago, Still Present Onset of Pain: Days Current Severity: None Pain Intensity: 0 Pain Scale Used: 0-10 Numeric Location: Abdomen/Pelvis - right upper abdomen Aggravating Factor(s): Cough Alleviating Factor(s): Nothing Associated Signs & Symptoms: Negative: SOB, Chest Pain, Fever, Nausea/Vomiting, Loss of Consciousness, Other: - NEGATIVE: diarrhea, constipation Related History: Anticoagulants - Plavix and aspirin - Allergy/Home Medications Allergies/Adverse Reactions: Allergies Allergy/AdvReac Type Severity Reaction Status Date / Time zolpidem [From Ambien] Allergy Hallucinati Verified 10/29/19 12:38 ons Home Medications: Home Medications Aspirin TAB* [Aspirin 325 MG TAB*] 325 mg PO DAILY 11/29/13 [History Confirmed 10/29/19] Atorvastatin* [Lipitor 20 MG*] 20 mg PO DAILY 11/29/13 [History Confirmed ] Hydrochlorothiazide TAB* [Hydrodiuril TAB*] 25 mg PO DAILY 11/29/13 [History Confirmed 10/29/19] Lisinopril TAB* [Prinivil TAB 10 MG*] 40 mg PO DAILY 11/29/13 [History Confirmed 10/29/19] Atenolol TAB* [Tenormin TAB* 50 MG] 150 mg PO DAILY 01/23/18 [History Confirmed 10/29/19] Insulin GLARGINE(*) [Lantus 100 units/ml 10 ml VIAL (*)] 40 units SUBCUT BID [History Confirmed 10/29/19] Multivitamins/Minerals TAB* [Theragran/minerals TAB*] 1 tab PO DAILY 01/23/18 [ History Confirmed 10/29/19] glipiZIDE TAB* [Glucotrol TAB*] 10 mg PO DAILY 01/23/18 [History Confirmed ] Potassium Chloride [Klor-Con 10] 10 meq PO DAILY 04/23/18 [History Confirmed ] Clopidogrel TAB* [Plavix TAB*] 1 tab DAILY 10/29/19 [History Confirmed 10/29/19] Niacin ER CAP* [Niaspan ER CAP*] 1 - 2 tab BID 10/29/19 [History Confirmed ] Pantoprazole TAB * [Protonix TAB*] 1 tab DAILY 10/29/19 [History Confirmed ] Pioglitazone TAB* [Actos TAB*] 30 mg PO DAILY 10/29/19 [History Confirmed ] Primidone 50 mg TAB (*) [Mysoline 250 mg TAB (*)] 1 - 2 tab DAILY PRN 10/29/19 [ History Confirmed 10/29/19] Sitagliptin Phos/Metformin HCl [Janumet 50-1,000 mg Tablet] 1 tab BID 10/29/19 [ History Confirmed 10/29/19] amLODIPine TAB* [Norvasc 5 mg TAB*] 10 mg PO DAILY 10/29/19 [History Confirmed 10/29/19] PMH/Surg Hx/FS Hx/Imm Hx Endocrine/Hematology History: Reports: Hx Diabetes Cardiovascular History: Reports: Hx Coronary Artery Disease, Hx Hypercholesterolemia, Hx Hypertension, Other Cardiovascular Problems/Disorders - surgery for pericardial cyst removal Denies: Hx Angina, Hx Myocardial Infarction, Hx Pacemaker/ICD, Hx Valvular Heart Disease Respiratory History: Reports: Hx Chronic Obstructive Pulmonary Disease (COPD) Denies: Hx Asthma, Other Respiratory Problems/Disorders GI History: Reports: Hx Hiatal Hernia Denies: Other GI Disorders History: Reports: Hx Renal Disease - kidney mass ( cyst) per pt, never biopsied Denies: Hx Dialysis Musculoskeletal History: Denies: Other Musculoskeletal History Sensory History: Reports: Hx Cataracts - STEVE, Hx Contacts or Glasses - GLASSES Denies: Hx Hearing Aid Opthamlomology History: Reports: Hx Cataracts - STEVE, Hx Contacts or Glasses - GLASSES Psychiatric History: Denies: Hx Panic Disorder - Surgical History Surgery Procedure, Year, and Place: NECK FROM ACCIDENT, 1992, [place], PERICARDIAL CYST, 1992, [place],HEART CATH X2, 2004, [facility],HYDROCELE LEFT, [facility] , 2006,2015 cataract bilat,left shoulder Hx Anesthesia Reactions: No Infectious Disease History: No Infectious Disease History: Denies: Traveled Outside the [place] in Last 30 Days - Family History Known Family History: Positive: Cardiac Disease Family History: CAD - Social History Alcohol Use: None Alcohol Amount: 12 IN [place] Hx Substance Use: No Substance Use Type: Reports: None Hx Tobacco Use: No Smoking Status (MU): Former Smoker Type: Cigarettes Have You Smoked in the Last Year: No Review of Systems Negative: Fever Negative: Chest Pain Negative: Shortness Of Breath Negative: Vomiting, Diarrhea, Nausea, Other - NEGATIVE: constipation Positive: Bruising - right upper abdomen All Other Systems Reviewed And Are Negative: Yes Physical Exam - Summary Physical Exam Summary: VITAL SIGNS: Reviewed. GENERAL: Patient is a well-developed and nourished male who is lying comfortable in the stretcher. Patient is not in any acute respiratory distress. HEAD AND FACE: No signs of trauma. No ecchymosis, hematomas or skull depressions. No sinus tenderness. EYES: PERRLA, EOMI x 2, No injected conjunctiva, no nystagmus. EARS: Hearing grossly intact. Ear canals and tympanic membranes are within normal limits. MOUTH: Oropharynx within normal limits. NECK: Supple, trachea is midline, no adenopathy, no JVD, no carotid bruit, no c- spine tenderness, neck with full ROM. CHEST: Symmetric, no tenderness at palpation LUNGS: Clear to auscultation bilaterally. No wheezing or crackles. CVS: Regular rate and rhythm, S1 and S2 present, no murmurs or gallops appreciated. ABDOMEN: Soft, non-tender. Bruising on right upper quadrant, nontender. EXTREMITIES: FROM in all major joints, no edema, no cyanosis or clubbing. NEURO: Alert and oriented x 3. No acute neurological deficits. Speech is normal and follows commands. SKIN: Dry and warm. Bruising on right upper quadrant, nontender. Triage Information Reviewed: Yes Vital Signs On Initial Exam: Initial Vitals Temp Pulse Resp BP Pulse Ox 98.1 F 85 19 152/87 96 10/29/19 12:36 10/29/19 12:36 10/29/19 12:36 10/29/19 12:36 10/29/19 12:36 Vital Signs Reviewed: Yes Procedures - Sedation Patient Received Moderate/Deep Sedation with Procedure: No Diagnostics - Vital Signs Vital Signs Temp Pulse Resp BP Pulse Ox 10/29/19 12:36 98.1 F 85 19 152/87 96 - Laboratory Result Diagrams: 10/29/19 13:10 10/29/19 13:10 Lab Statement: Any lab studies that have been ordered have been reviewed, and results considered in the medical decision making process. - CT Abdomen/pelvis CT CT Interpretation Completed By: Radiologist Summary of CT Findings: IMPRESSION: 1. In the subcutaneous tissue overlying the right upper quadrant there is mild subcutaneous hyperattenuation consistent with ecchymosis but there is no drainable fluid collection, underlying bony fracture or evidence of acute solid organ injury. 2. At the left kidney there is a slowly enlarging hyperattenuating structure consistent with a dense cyst. This can be further characterized with a nonemergent ultrasound which has not been acquired at least on our imaging system. 3. There are additional chronic and degenerative changes described in the body the report unrelated to the patients recent fall. Dr. Rabago has reviewed this report. Re-Evaluation - Re-Evaluation First Eval Re-Evaluation Time: 15:12 Comment: Reviewed results with patient. He will be discharged home with follow up from PCP. Adult Trauma Course/Dx - Course Assessment/Plan: This patient is a 69 y/o male [facility]/o bruising to right upper abdomen s/p fall on 10/25/19. Patient reports he slipped and fell on halogen spotlight and sustained a bruise to right upper abdomen. He denies any head strike or LOC. He notes his bruising has worsened since his fall. Patient states he has pain to right upper abdomen only when he coughs or with movement. Denies fever, nausea, vomiting, diarrhea, constipation, chest pain, SOB. Patient is anticoagulated on Plavix. He also takes aspirin. PMHx includes dyslipidemia, HTN, DM, GERD. The patient is asymptomatic in the emergency room. Blood work without a significant abnormality except for potassium level of 3.4, BUN is 25, glucose 158. Abdominal and pelvic CT IMPRESSION: 1. In the subcutaneous tissue overlying the right upper quadrant there is mild subcutaneous hyperattenuation consistent with ecchymosis but there is no drainable fluid collection, underlying bony fracture or evidence of acute solid organ injury. 2. At the left kidney there is a slowly enlarging hyperattenuating structure consistent with a dense cyst. This can be further characterized with a nonemergent ultrasound which has not been acquired at least on our imaging system. 3. There are additional chronic and degenerative changes described in the body the report unrelated to the patient's recent fall. Patient continues to be asymptomatic. Therefore the patient will be discharged home with follow up from his primary care physician. I discussed all the findings and test results with the patient. Patient was instructed to return to the emergency room immediately if any of the symptoms return or worsens. Plan of care was discussed with the patient and he understands and agrees. All questions were answered at patient satisfaction. There were no further complaints or concerns. Lung exam before discharge: CTA B/L. Good air exchange. No wheezing or crackles heard. CVS: S1 and S2 present. No murmurs appreciated. Patient is alert and oriented x 3. Patient is hemodynamically stable. Patient will be discharged home with follow up from his PCP in the next 2-3 days. - Diagnoses Provider Diagnoses: Superficial bruising of abdominal wall Discharge ED - Sign-Out/Discharge Documenting (check all that apply): Patient Departure - Discharge home - Discharge Plan Condition: Stable Disposition: HOME Patient Education Materials: Contusion in Adults (ED) Referrals: Rakesh Kline MD [Primary Care Provider] - Additional Instructions: FOLLOW UP WITH YOUR PRIMARY CARE PROVIDER IN 2-3 DAYS. RETURN TO THE EMERGENCY DEPARTMENT FOR ANY WORSENING OR NEW SYMPTOMS. - Billing Disposition and Condition Condition: STABLE Disposition: Home - Attestation Statements Document Initiated by Santiago: Yes Documenting Scribe: Daphney Friedman Provider For Whom Santiago is Documenting (Include Credential): Rene Rabago MD Scribe Attestation: Daphney Graham scribed for Rene Rabago MD on 10/29/19 at 2134. Scribe Documentation Reviewed: Yes Provider Attestation: The documentation as recorded by the Daphney cha accurately reflects the service I personally performed and the decisions made by , Rene Rabago MD Status of Scribe Document: Viewed
[2019-10-29 13:19] LABS: ABS Eosinophils 0.2 10^3/ul (0-0.6); ABS Lymphocytes 2.3 10^3/ul (1.0-4.8); ABS Neutrophils 5.6 10^3/ul (1.5-7.7); Eosinophil % 2.4 %; Hematocrit 43 % (42-52); Hemoglobin 14.3 g/dL (14.0-18.0); Mean Corpuscular HGB Conc 34 g/dL (31-36); Mean Corpuscular Hemoglobin 32 pg (27-31); Mean Corpuscular Volume 95 fL (80-94); Mean Platelet Volume 11.1 fL (7.4-10.4); Platelet Count 212 10^3/uL (150-450); Red Blood Count 4.46 10^6 /uL (4.18-5.48); Red Cell Distribution Width 14 % (10-15); White Blood Count 9.2 10^3/uL (3.5-10.8)
[2019-10-29 13:36] LABS: ALT 22 U/L (7-52); AST 19 U/L (13-39); Albumin 4.3 g/dL (3.2-5.2); Albumin/Globulin Ratio 1.5 (1-3); Alkaline Phosphatase 74 U/L (34-104); Anion Gap 7 mmol/L (2-11); BUN/Creatinine Ratio 25.3 (8-20); Blood Urea Nitrogen 25 mg/dL (6-24); C Reactive Protein 1.25 mg/L (<8.01); CO2 Carbon Dioxide 30 mmol/L (22-32); Calcium 9.4 mg/dL (8.6-10.3); Chloride 101 mmol/L (101-111); EGFR African American 90.4 (>60); EGFR Non-African American 74.7 (>60); Globulin 2.8 g/dL (2-4); Glucose 158 mg/dL (70-100); Potassium 3.4 mmol/L (3.5-5.0); Sodium 138 mmol/L (135-145); Total Protein 7.1 g/dL (6.4-8.9)
[2019-10-29] MEDS ORDERED: Iodixanol* (CONTRAST) 320 MG/ML 100 ML SDV IV ONE (13:50)
[2019-10-29 15:31] VITALS: BP 150/85
== END 2019-10-29 15:29 | disposition home or self-care (01) ==
LOC: ED 12:34
DX: S30.1XXA Contusion of abdominal wall, initial encounter (principal); W19.XXXA Unspecified fall, initial encounter; Y92.9 Unspecified place or not applicable; E78.5 Hyperlipidemia, unspecified; E78.00 Pure hypercholesterolemia, unspecified; I10 Essential (primary) hypertension; E11.9 Type 2 diabetes mellitus without complications; K21.9 Gastro-esophageal reflux disease without esophagitis; I25.10 Atherosclerotic heart disease of native coronary artery without angina pectoris; J44.9 Chronic obstructive pulmonary disease, unspecified; Z79.4 Long term (current) use of insulin; Z79.899 Other long term (current) drug therapy; Z87.891 Personal history of nicotine dependence; Z79.82 Long term (current) use of aspirin
CPT/HCPCS: 36415; 74177; 80053; 83690; 85025; 85730; 86140; 86850; 86900; 86901; 99283; Q9967

== ENCOUNTER 2019-11-10 12:46 | Emergency (ER) | payer MEDICARE, OTHER ==
[2019-11-10 13:58] VITALS: BP 142/87
--- NOTE | 2019-11-10 15:39 | UC ---
Truncal Trauma HPI - HPI Summary HPI Summary: 77-year-old male presents with persistent right lower anterior chest wall pain. He was seen at this facility on 10/29/2019 for injury sustained when he slipped and fell onto a spotlight on 10/26/2019. There was concern because of patient is on Plavix and aspirin for potential internal bleeding and he was subsequently seen in the [facility] emergency room where he had a negative CT scan of the abdomen. Patient states he continues to have pain at the site where he was struck the spotlight especially with any cough or sneeze. Has taken acetaminophen with some relief in the pain. States initially had a fair amount of bruising but has since begun to fade. He does note a "lump" under the skin and is concerned that he may have a broken rib. Denies fever, chills, cough, or shortness of breath. - History Of Current Complaint Chief Complaint: UCTrauma Stated Complaint: RT SIDE INJURY Time Seen by Provider: 11/10/19 15:33 Hx Obtained From: Patient Pain Intensity: 3 - Allergies/Home Medications Allergies/Adverse Reactions: Allergies Allergy/AdvReac Type Severity Reaction Status Date / Time zolpidem [From Ambien] Allergy Hallucinati Verified 11/10/19 13:58 ons Home Medications: Home Medications Aspirin TAB* [Aspirin 325 MG TAB*] 325 mg PO DAILY 11/29/13 [History Confirmed 11/10/19] Atorvastatin* [Lipitor 20 MG*] 20 mg PO DAILY 11/29/13 [History Confirmed ] Hydrochlorothiazide TAB* [Hydrodiuril TAB*] 25 mg PO DAILY 11/29/13 [History Confirmed 11/10/19] Lisinopril TAB* [Prinivil TAB 10 MG*] 40 mg PO DAILY 11/29/13 [History Confirmed 11/10/19] Atenolol TAB* [Tenormin TAB* 50 MG] 150 mg PO DAILY 01/23/18 [History Confirmed 11/10/19] Insulin GLARGINE(*) [Lantus 100 units/ml 10 ml VIAL (*)] 40 units SUBCUT BID [History Confirmed 11/10/19] Multivitamins/Minerals TAB* [Theragran/minerals TAB*] 1 tab PO DAILY 01/23/18 [ History Confirmed 11/10/19] glipiZIDE TAB* [Glucotrol TAB*] 10 mg PO DAILY 01/23/18 [History Confirmed 11/09] Potassium Chloride [Klor-Con 10] 10 meq PO DAILY 04/23/18 [History Confirmed 08/19] Clopidogrel TAB* [Plavix TAB*] 1 tab DAILY 10/29/19 [History Confirmed 11/10/19] Niacin ER CAP* [Niaspan ER CAP*] 1 - 2 tab BID 10/29/19 [History Confirmed 11/09] Pantoprazole TAB * [Protonix TAB*] 1 tab DAILY 10/29/19 [History Confirmed 11/09] Pioglitazone TAB* [Actos TAB*] 30 mg PO DAILY 10/29/19 [History Confirmed ] Primidone 50 mg TAB (*) [Mysoline 250 mg TAB (*)] 1 - 2 tab DAILY PRN 10/29/19 [ History Confirmed 11/10/19] Sitagliptin Phos/Metformin HCl [Janumet 50-1,000 mg Tablet] 1 tab BID 10/29/19 [ History Confirmed 11/10/19] amLODIPine TAB* [Norvasc 5 mg TAB*] 10 mg PO DAILY 10/29/19 [History Confirmed 11/10/19] PMH/Surg Hx/FS Hx/Imm Hx Endocrine History: Diabetes, Dyslipidemia Cardiovascular History: Cardiac Disease, Hypertension - Surgical History Surgical History: Yes Surgery Procedure, Year, and Place: NECK FROM ACCIDENT, 1992, [place], PERICARDIAL CYST, 1992, [place],HEART CATH X2, 2004, [facility] [place],HYDROCELE LEFT, [facility] [place] , 2006,2014 cataract bilat,left shoulder - Family History Known Family History: Positive: Cardiac Disease Family History: CAD - Social History Occupation: Retired Lives: With Family Alcohol Use: None Alcohol Amount: 12 IN [place] Substance Use Type: None Smoking Status (MU): Former Smoker Type: Cigarettes Have You Smoked in the Last Year: No When Did the Patient Quit Smoking/Using Tobacco: early Review of Systems All Other Systems Reviewed And Are Negative: Yes Constitutional: Negative: Fever, Chills Skin: Positive: Bruising Respiratory: Negative: Shortness Of Breath, Cough Cardiovascular: Positive: Negative Gastrointestinal: Positive: Negative Genitourinary: Positive: Negative Musculoskeletal: Positive: Other: - See HPI Neurological/Mental Status: Positive: Negative Is Patient Immunocompromised?: No Physical Exam - Summary Physical Exam Summary: GENERAL APPEARANCE: Well developed, well nourished, alert and cooperative, and appears to be in no acute distress. CARDIAC: Normal S1 and S2. No S3, S4 or murmurs. Rhythm is regular. There is no peripheral edema, cyanosis or pallor. Extremities are warm and well perfused. Capillary refill is less than 2 seconds. Peripheral pulses intact. LUNGS: Area of old bruisinn noted to the right, lower, anterior chest wall with a small, well circumscribed, mobile, nodule palpated centrally. No crepitus or subcutaneous emphysema. Clear to auscultation without rales, rhonchi, wheezing or diminished breath sounds. ABDOMEN: Positive bowel sounds. Soft, nondistended, nontender. No guarding or rebound. No masses or hepatosplenomegally. MUSKULOSKELETAL: ROM intact to all extremities. No joint erythema or tenderness. Normal muscular development. Normal gait. SKIN: Skin normal color, texture and turgor with no lesions or eruptions. Triage Information Reviewed: Yes Vital Signs: Initial Vital Signs Temp 98.5 F 11/10/19 13:51 Pulse 74 11/10/19 13:51 Resp 18 11/10/19 13:51 BP 142/87 11/10/19 13:51 Pulse Ox 98 11/10/19 13:51 Vital Signs Reviewed: Yes Images Front/Back of Body, Lg ([place]): 1 - Area of old ecchymosis Diagnostics - Radiology No standard instances Radiology Interpretation Completed By: Radiologist Summary of Radiographic Findings: Order Information: RIBS RT UNI W/PA CH MIN 3 VWS. INDICATION: RIGHT chest wall pain post fall. COMPARISON: October 29, [address] TECHNIQUE: Dual-energy PA chest and 3 dedicated RIGHT rib views. REPORT: Inferior skin marker indicating the site of clinical concern. No RIGHT rib fracture, pulmonary contusion, pleural effusion, or pneumothorax. The heart, pulmonary vasculature, and mediastinal contours are unremarkable. Unremarkable soft tissue contours. IMPRESSION: #. Negative for RIGHT rib fracture. Truncal Trauma Course/Dx - Course Course Of Treatment: 77-year-old male presents with persistent right lower anterior chest wall pain. He was seen at this facility on 10/29/2019 for injury sustained when he slipped and fell onto a spotlight on 10/26/2019. There was concern because of patient is on Plavix and aspirin for potential internal bleeding and he was subsequently seen in the [facility] emergency room where he had a negative CT scan of the abdomen. Patient states he continues to have pain at the site where he was struck the spotlight especially with any cough or sneeze. Has taken acetaminophen with some relief in the pain. States initially had a fair amount of bruising but has since begun to fade. He does note a "lump" under the skin and is concerned that he may have a broken rib. Denies fever, chills, cough, or shortness of breath. Afebrile. Mildly hypertensive of his vital signs stable. Patient had an area of old bruising noted to the right, lower, anterior chest wall with a small, well circumscribed, mobile, nodule palpated centrally. No crepitus or subcutaneous emphysema. Clear to auscultation without rales, rhonchi, wheezing or diminished breath sounds. Remainder of exam was unremarkable. X-ray showed no rib fracture or acute cardiopulmonary pathology. Reviewed results with patient. Recommending continued conservative treatment for a chest wall contusion. We discussed performing deep breathing exercises every 1-2 hours while awake for prevention of pneumonia. He is to follow-up with his primary care provider in 5-7 days if symptoms are not improving. Anticipatory guidance and warning symptoms were reviewed with the patient. Verbalizes understanding and agrees with plan of care. - Differential Dx/Diagnosis Differential Diagnosis/HQI/PQRI: Abdominal Wall Contusion, Chest Wall Contusion , Pneumothorax, Pulmonary Contusion, Rib Fracture Provider Diagnosis: Chest wall contusion Discharge ED - Sign-Out/Discharge Documenting (check all that apply): Patient Departure All imaging exams completed and their final reports reviewed: No Studies - Discharge Plan Condition: Stable Disposition: HOME Patient Education Materials: Chest Wall Pain (ED) Referrals: Rakesh Kline MD [Primary Care Provider] - 5 Days Additional Instructions: The rib x-rays and chest x-ray performed in the clinic today were normal. There was no evidence of a rib fracture. I suspect that the lump you are feeling in the skin is a healing hematoma. Continue to take acetaminophen (Tylenol) according to directions as needed for pain. Be sure to be doing the deep breathing exercises that we discussed every 1-2 hours to follow weight to help prevent pneumonia. You may want to use a folded blanket or pillow to splint your chest whenever you cough or sneeze to minimize the pain. Follow-up with your primary care provider in 5-7 days if symptoms persist. Seek immediate medical attention in the emergency room if you develop a fever greater than 100.5 F, has severe chest pain, difficulty breathing, or any worsening of symptoms. - Billing Disposition and Condition Condition: STABLE Disposition: Home - Attestation Statements Provider Attestation: This patient was not seen by me. I was available for consult. Chart reviewed. EVA
== END 2019-11-10 16:10 | disposition home or self-care (01) ==
LOC: UCCORT 12:46
DX: S20.211A Contusion of right front wall of thorax, initial encounter (principal); E11.9 Type 2 diabetes mellitus without complications; I10 Essential (primary) hypertension; E78.5 Hyperlipidemia, unspecified; Z88.8 Allergy status to other drugs, medicaments and biological substances; Z79.82 Long term (current) use of aspirin; Z79.4 Long term (current) use of insulin; Z79.899 Other long term (current) drug therapy; Z79.02 Long term (current) use of antithrombotics/antiplatelets; Z87.891 Personal history of nicotine dependence; W01.0XXA Fall on same level from slipping, tripping and stumbling without subsequent striking against object, initial encounter; Y92.9 Unspecified place or not applicable
CPT/HCPCS: 99212; G0463

== ENCOUNTER 2024-06-24 20:48 | Inpatient (IN) ==
[2024-06-25 00:54] LABS: High Sensitivity Troponin 1 Hr 6 pg/mL (<20)
[2024-06-25] MEDS ORDERED: Sulfur Hexaflouride MICROSPHR 25 MG VIAL IV PRN (01:11)
[2024-06-25] MEDS ORDERED: Dextrose 50% Syringe 50 ml 25 GM/50 ML SYRINGE IV PUSH PRN (02:33)
[2024-06-25 03:20] LABS: HDL Cholesterol 31.3 mg/dL
[2024-06-25 04:43] LABS: Ur Squamous Epithelial No Cx Present /HPF (Absent); Urine Appearance No Cx Clear (Clear); Urine Bacteria No Culture Absent /HPF (Absent); Urine Bilirubin No Culture Negative (Negative); Urine Blood No Culture Negative (Negative); Urine Color No Culture Light-Yellow; Urine Glucose No Culture 4+ (>=1000 mg/dL) (Negative); Urine Ketones No Culture Trace (Negative); Urine Leukocytes No Culture Negative Leu/uL (Negative); Urine Nitrite No Culture Negative (Negative); Urine Protein No Culture 1+ (>=30 mg/dL) (Negative); Urine Red Blood Cell No Cult Absent /HPF (0-Trace); Urine Urobilinogen No Cx Negative (Negative); Urine White Blood Cell No Cult Absent /HPF (0-Trace); Urine pH No Culture 6.5 (5.0-8.0)
[2024-06-25 05:27] LABS: Hematocrit 43.5 % (38-53); Hemoglobin 14.4 g/dL (13.2-16.3); Mean Corpuscular Hgb Conc 33.1 g/dL (31-36); Mean Corpuscular Volume 93.6 fL (80-97); Mean Platelet Volume 11.5 fL (7.5-11.2); Platelet Count 220 10^3/uL (150-450); Red Blood Count 4.65 10^6/uL (4.06-5.63); Red Cell Distribution Width 13.7 % (12-17); White Blood Count 12.9 10^3/uL (3.6-10.2)
[2024-06-25] MEDS: Enoxaparin 40 MG/0.4 ML SYR SUBCUT SCH (05:59)
[2024-06-25 06:01] LABS: Calcium 8.9 mg/dL (8.6-10.3); Creatinine, Serum 0.76 mg/dL (0.67-1.17); Magnesium 1.5 mg/dL (1.9-2.7); Potassium 3.1 mmol/L (3.5-5.0); eGFR CKD-EPI 94.3 (>60)
[2024-06-25] MEDS: Aspirin EC 81 mg TAB.EC (enteric coated) PO SCH (08:30)
[2024-06-25] MEDS: Magnesium Sulf 4 GM/100 ML IV 4,000 MG/100 ML BAG IVPB ONE (10:49)
[2024-06-25] MEDS: Potassium Chlor 20 meq TAB.ER PO ONE (10:50)
[2024-06-26 11:09] LABS: Calcium 9.1 mg/dL (8.6-10.3); Creatinine, Serum 0.84 mg/dL (0.67-1.17); Magnesium 2.1 mg/dL (1.9-2.7); Potassium 3.7 mmol/L (3.5-5.0); eGFR CKD-EPI 91.5 (>60)
[2024-06-28] MEDS: Empagliflozin 25 MG TAB PO SCH (20:44)
[2024-06-29 09:28] VITALS: BP 185/92
== END 2024-06-29 09:27 | DRG 65 ==
LOC: EDHOLD 20:48 → ED 20:48 → MEDTELE 06-25 14:54
PROVIDERS: ADMIT Student in an Organized Health Care Education/Training Program; ATTEND Internal Medicine

== ENCOUNTER 2024-06-29 07:20 | Inpatient (IN) ==
[2024-06-29] MEDS ORDERED: Senna TAB 8.6 mg TAB PO PRN (11:11)
[2024-06-29] MEDS ORDERED: Magnesium Hydroxide LIQ 30 ML UDC PO PRN (11:11)
[2024-06-29] MEDS ORDERED: Dextrose 50% Syringe 50 ml 25 GM/50 ML SYRINGE IV PUSH PRN (11:15)
[2024-06-29] MEDS: Empagliflozin 25 MG TAB PO SCH (21:08)
[2024-06-30] MEDS: Aspirin EC 81 mg TAB.EC (enteric coated) PO SCH (10:17)
[2024-06-30] MEDS: Enoxaparin 40 MG/0.4 ML SYR SUBCUT SCH (10:19)
[2024-07-01 06:59] LABS: ABS Eosinophils 0.3 10^3/uL (0.0-0.5); ABS Lymphocytes 2.3 10^3/uL (1.0-4.8); ABS Monocytes 1.3 10^3/uL (0.0-1.1); ABS Neutrophils 8.2 10^3/uL (1.5-7.6); Eosinophil % 2.1 %; Hematocrit 47.9 % (38-53); Lymphocyte % 18.8 %; Mean Corpuscular Hemoglobin 31.2 pg (27-33); Mean Corpuscular Hgb Conc 33.4 g/dL (31-36); Mean Corpuscular Volume 93.3 fL (80-97); Mean Platelet Volume 11.2 fL (7.5-11.2); Platelet Count 248 10^3/uL (150-450); Red Blood Count 5.13 10^6/uL (4.06-5.63); Red Cell Distribution Width 13.9 % (12-17)
[2024-07-01 07:28] LABS: Albumin 4.3 g/dL (3.2-5.2); Albumin/Globulin Ratio 1.8 (1-3); Calcium 9.4 mg/dL (8.6-10.3); Creatinine, Serum 0.95 mg/dL (0.67-1.17); Globulin 2.4 g/dL (2-4); Potassium 3.5 mmol/L (3.5-5.0); Total Bilirubin 0.8 mg/dL (0.2-1.0); Total Protein 6.7 g/dL (6.4-8.9)
[2024-07-07] MEDS: Insulin GLARGINE 100 un/ml 10 ml VIAL SUBCUT SCH (10:27)
[2024-07-08 07:49] LABS: ABS Eosinophils 0.2 10^3/uL (0.0-0.5); ABS Lymphocytes 2.1 10^3/uL (1.0-4.8); ABS Monocytes 0.9 10^3/uL (0.0-1.1); ABS Neutrophils 6.8 10^3/uL (1.5-7.6); ABS Nucleated RBC 0.01 10^3/ul; Eosinophil % 2.3 %; Hematocrit 46.7 % (38-53); Hemoglobin 15.6 g/dL (13.2-16.3); Lymphocyte % 20.6 %; Mean Corpuscular Hemoglobin 31.3 pg (27-33); Mean Corpuscular Hgb Conc 33.4 g/dL (31-36); Mean Corpuscular Volume 93.7 fL (80-97); Mean Platelet Volume 12.7 fL (7.5-11.2); Nucleated Red Blood Cells % 0.1 %/100WBC (0.0-0.8); Platelet Count 210 10^3/uL (150-450); Red Blood Count 4.98 10^6/uL (4.06-5.63); Red Cell Distribution Width 13.6 % (12-17)
[2024-07-08 07:54] LABS: Albumin 4.5 g/dL (3.2-5.2); Albumin/Globulin Ratio 1.9 (1-3); Calcium 9.2 mg/dL (8.6-10.3); Creatinine, Serum 0.94 mg/dL (0.67-1.17); Globulin 2.4 g/dL (2-4); Potassium 3.5 mmol/L (3.5-5.0); Total Bilirubin 0.7 mg/dL (0.2-1.0); Total Protein 6.9 g/dL (6.4-8.9); eGFR CKD-EPI 85.1 (>60)
[2024-07-09] MEDS: Insulin GLARGINE 100 un/ml 10 ml VIAL SUBCUT SCH (09:16)
[2024-07-09] MEDS: Lidocaine PATCH 5% PATCH TRANSDERM SCH (11:33)
[2024-07-13 04:57] VITALS: BP 153/86
[2024-07-13] MEDS: Insulin GLARGINE 100 un/ml 10 ml VIAL SUBCUT SCH (09:01)
== END 2024-07-13 15:15 | disposition home or self-care (01) | DRG 65 ==
LOC: PMRU 09:53
PROVIDERS: ADMIT Physical Medicine & Rehabilitation; ATTEND Physical Medicine & Rehabilitation